=== PATIENT | female | born 1960 | race Caucasian/White ===

== ENCOUNTER → 2017-11-30 | Day surgery (SDC) | payer OTHER ==
[~2017-11-30] VITALS: Ht 170.2 cm; Wt 70.3 kg
[~2017-11-30] MED LIST: BUPIVAC MPF-EPI 0.5%-1:200000 30 ML VIAL. ONE; DEXAMETHASONE SOD PHOS 20 MG/5 ML VIAL. ONE; FAMOTIDINE 20 MG/2 ML VIAL ONE; GLUC1CAP48 PO; HYDR-965 PO; HYDROmorphone 2 MG/ML VIAL IV PRN; IBUP200T44 PO; IV RINGERS,LACTATED 1000ML 1,000 ML IV SCH; LIDOCAINE 1% PF 2 ML VIAL. ID PRN; LYSI500T3 PO; MIDAZOLAM HCL/PF 2 MG/2 ML VIAL. ONE; MORPHINE SULFATE 2 MG/ML VIAL. IV PRN; OMEG-131 PO; ONDANSETRON PF 4 MG/2 ML VIAL. IV PRN; ONDANSETRON PF 4 MG/2 ML VIAL. ONE; PROCHLORPERAZINE 10 MG/2 ML VIAL. IV PRN; PROPOFOL 20 ML IV ONE; SEVOFLURANE 31 TO 60 MINUTES. IH ONE; SIMV10TA3 PO; TURM500C4 PO; fentaNYL PF VIAL 100 MCG/2 ML VIAL IV PRN; fentaNYL PF VIAL 100 MCG/2 ML VIAL ONE
--- NOTE | 2017-11-30 07:58 | DISCH ---
DISCHARGE INSTRUCTIONS Condition on Discharge Condition on Discharge: Stable Activity After Discharge Activity Instructions for Disc: Activity as tolerated Weight Bearing Status after Di: As tolerated Diet after Discharge Diet after Discharge: Regular Wound Incision Care Wound/Incision Care: Ice to area for comfort, Change dressing (remove dressing in 2 days may then shower) Contacting the after DC Call your doctor for: Concerns you may have Follow-Up Follow up with: Vance 7-10 days LEIGHTON ZAMARRIPA MD Nov 30, 2017 07:58
--- NOTE | 2017-11-30 08:45 | PDOC4 ---
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 Estimated blood loss: 3 mL Complications: None Operative indications: Yari is a 57-year-old female with pain and swelling limiting her activities. MRI had confirmed clinical suspicion of a medial meniscus tear also showed some chondromalacia and I went over with her the structure and function of the meniscus and the typical arthroscopic treatment addressing the mechanical issues and the fact that I cannot undo any degenerative changes other than generally debriding any loose cartilage back to more stable tissue. We covered the risks of infection continued pain nerve or blood vessel damage medical or other anesthetic complications among others all her questions were answered consent was obtained and she agrees to proceed with operative evaluation and treatment Operative text: Patient was identified procedure verified patient placed in the supine position on the operative table. After adequate amounts of general anesthesia were administered she was placed in the supine position on the operating table with a thigh tourniquet and the right lower extremity prepped and draped in standard sterile fashion. After timeout was performed patient procedure identified and verified right lower extremity was exsanguinated and tourniquet inflated to 250 mmHg a lateral portal was established a medial portal established using spinal knee localization and the knee joint was systematically examined. She was found to have a displaceable tear posterior horn of the medial meniscus which was trimmed back to stable tissue and radiused appropriately to avoid ongoing stress riser with arthroscopic punch and shaver. She also had grade 3 chondromalacia of the medial femoral condyle weightbearing surface with a chondral flap tear which was trimmed back to stable tissue with the arthroscopic shaver. ACL was probed and found to be intact as was the lateral meniscus and lateral joint surfaces were noted to be pristine. She had some grade 3 chondromalacia central and distal pole of the patella as well as in the trochlear groove which were lightly debrided back to stable tissue as well. No loose bodies noted in the gutters or suprapatellar pouch joint was drained of arthroscopic fluid portals closed with nylon suture have percent plain Marcaine was infused to the fat pad and incision areas sterile dressings were applied she was returned recovery room stable condition having tolerated procedure well LEIGHTON ZAMARRIPA MD Nov 30, 2017 08:45
[2017-11-30 09:44] VITALS: BP 119/67
== END | disposition home or self-care (01) ==
LOC: SURG 05:43
PROVIDERS: ATTEND Orthopaedic Surgery
DX: S83.241A Other tear of medial meniscus, current injury, right knee, initial encounter (principal); M22.41 Chondromalacia patellae, right knee; Z90.710 Acquired absence of both cervix and uterus; Z79.82 Long term (current) use of aspirin; Z79.899 Other long term (current) drug therapy; X58.XXXA Exposure to other specified factors, initial encounter; Y93.89 Activity, other specified; Y92.89 Other specified places as the place of occurrence of the external cause; Y99.8 Other external cause status
CPT/HCPCS: 29881; A7015; C1782; J0690; J1100; J2250; J2405; J2704; J3010; J3490; S0028